=== PATIENT | female | born 1980 | race Caucasian/White ===

== ENCOUNTER 2020-03-14 11:02 | Outpatient (CLI) | payer OTHER, MEDICAID, SELFPAY ==
--- NOTE | 2020-03-14 11:22 | ECG_ITS ---
Measurements Intervals [place] Rate: 71 P: 43 AR: 209 QRS: 45 QRSD: 99 T: 37 QT: 358 QTc: 390 Interpretive Statements SINUS RHYTHM INCOMPLETE RIGHT BUNDLE BRANCH BLOCK LOW QRS VOLTAGE IN PRECORDIAL LEADS MINIMAL Q WAVES- INFERIOR LEADS BASELINE ARTIFACT- II, III, AVF BORDERLINE ECG Electronically Signed On 03-14-2020 11:37:23 CDT by Kevin Alicia D.O.
[2020-03-14 11:38] LABS: Anion Gap 3 mmol/L (8-16); Blood Urea Nitrogen 9 mg/dL (7-17); Calcium 8.9 mg/dL (8.4-10.2); Carbon Dioxide 32 mmol/L (22-30); Chloride 103 mmol/L (98-107); Estimated Glomerular Filt Rate > 60; Glucose 140 mg/dL (65-105); Potassium 4.4 mmol/L (3.4-5.0); Sodium 138 mmol/L (137-145)
== END 2020-03-14 11:03 | disposition home or self-care (01) ==
PROVIDERS: PCP Internal Medicine; Visit Provider Anesthesiology
DX: E11.9 Type 2 diabetes mellitus without complications (principal); Z01.818 Encounter for other preprocedural examination; I45.10 Unspecified right bundle-branch block
CPT/HCPCS: 36415; 80048; 93005

== ENCOUNTER 2020-03-17 01:43 | Outpatient (CLI) | payer OTHER, MEDICAID, SELFPAY ==
[2020-03-17 22:13] LABS: SARS-CoV-2 RNA PCR Negative
== END 2020-03-17 01:44 | disposition home or self-care (01) ==
LOC: ANHCOVIDDT 01:43
PROVIDERS: PCP Internal Medicine; Visit Provider Obstetrics & Gynecology
DX: Z01.812 Encounter for preprocedural laboratory examination (principal); Z20.828 Contact with and (suspected) exposure to other viral communicable diseases
CPT/HCPCS: 87635; C9803; U0003

== ENCOUNTER 2020-03-20 00:38 | Day surgery (SDC) | payer OTHER, MEDICAID, SELFPAY ==
[2020-03-05 12:15] VITALS: BMI 54.6
[2020-03-20] VITALS (7 sets, daily range): BP systolic 128–145; BP diastolic 67–84; PULSE 52–79; RESP 15–18; TEMP 36.5; O2SAT 96–100
--- NOTE | 2020-03-20 07:14 | WPDHPUPDATE1 ---
History and Physical Update Update Date/Time: 03/20/20 07:14 History and Physical has been reviewed, including an updated exam of the patient. There are NO changes in the patient's condition. Risks, benefits, and alternatives have been discussed and questions answered. Patient agrees to proceed with procedure.
--- NOTE | 2020-03-20 08:45 | WPDANESEPPF ---
Anes - Initial Pre Proc Eval Procedure: Operation Date: 03/20/20 10:00 Proposed Procedures p Laparoscopic Bilateral Tubal Sterilization With Cautery - Sriram Ordaz MD s Hysteroscopy With Shelly Ablation - Sriram Ordaz MD Date/Time: 03/20/20 08:45 Surgeon: Sriram Ordaz MD Pre Op Diagnosis: Menorrhagia Patient Data Age: 39 Gender: F Height: 5 ft 9 in Weight: 168 kg Allergies Allergy/AdvReac Type Severity Reaction Status Date / Time No Known Allergies Allergy Mild Verified 01/09/19 21:24 Home Medications Medication Instructions Recorded Confirmed Type acetaminophen [Tylenol] 325 mg PO ONCE PRN 03/05/20 03/05/20 History aspirin 325 mg PO Q4H PRN 03/05/20 03/05/20 History furosemide 20 mg PO DAILY 03/05/20 03/05/20 History metformin 500 mg PO BID 03/05/20 03/05/20 History simvastatin 10 mg PO DAILY 03/05/20 03/05/20 History Patient hx anesthesia problems: none Family hx anesthesia problems: none [facility] Past Medical History Medical History Diabetes Hyperlipidemia Hypertension Social History Social History Smoking status: Never smoker Alcohol intake: current Drinks per week: 2 Substance use: never Living arrangements: with family Anes - Eval Final PreProcedure Day of Procedure 03/20/20 08:45 Patient weight: super morbidly obese Heart: regular rate and rhythm Lungs: clear to auscultation Airway: Mallampati scale class II Neurological: alert and oriented Last oral intake: >/= 8 hours ASA classification: III Emergent: no Anesthetic plan: proceed Anesthesia type and monitoring: general ETT and standard monitoring Informed Consent: The patient's anesthetic plan and its attendant risks and benefits were discussed with the patient/family/POA. Questions were solicited and answers provided to the satisfaction of the patient/family/POA.
[2020-03-20] MEDS: ACETAMINOPHEN 500 MG TABLET 1000 MG PO (08:47)
[2020-03-20] MEDS: SCOPOLAMINE 1.5 MG PATCH TRANSDERM (08:48)
[2020-03-20 08:58] LABS: Glucose Point of Care 111 (65-105)
[2020-03-20] MEDS: LACTATED RINGERS 1,000 ML 30 ML IV CONT ×2 (09:00→11:14)
[2020-03-20] MEDS: KETOROLAC 15 MG/ML VIAL (*BKC) IV PUSH (09:05)
--- NOTE | 2020-03-20 11:16 | PM.PROC ---
Procedure Note - Detailed Date of procedure: 03/20/20 Pre-op diagnosis: Menorrhagia Post-op diagnosis: same Procedure performed: Laparoscopic bilateral tubal ligation, Endometrial Ablation Description of procedure: Patient was taken the operating room. She has prepped draped in the dorsal lithotomy position after induction of general anesthesia. A 5 mm abdominal incision was made in left upper quadrant of the abdomen with scalpel. A 5 mm trocars inserted the intra-abdominal cavity under direct visualization of the scope. Pneumoperitoneum was achieved. A 5 mm periumbilical incision was made using a scalpel on the abdominal scan. A 5 mm trocar was inserted the intra-abdominal cavity under visualization of the scope.A 2nd 5 mm trocar was required in the left lower quadrant of the abdomen. A 5 mm incision was made 5 mm trocar was inserted the intra-abdominal cavity under direct visualization the scope. This was used to move the colon away while the tubes were fulgurated. There was a corpus luteum cyst that was bleeding after it had been manipulated. This was on the right side. It was Thoroughly cauterized as well. The fallopian tube was grasped with the bipolar cautery in the ampullary region. It was completely desiccated in a 1.5 cm area of the fallopian tube. This was performed in identical fashion on the contralateral side. The instruments were withdrawn. The pneumoperitoneum was reduced. The trocars were removed. The skin was closed with subcuticular 4 Monocryl. This incisions were covered with Dermabond. Our attention was then turned to the endometrial ablation portion of the procedure. A speculum was placed in the vagina. The cervix was grasped with a tenaculum. The cervix was dilated to approximately 8 mm with Lemus dilators. The hysteroscope was inserted. And the below findings were noted. Measurements of the cervix were taken using the uterine sound and the hysteroscope. The intrauterine cavity measurements were entered into the hand piece of the device. The device was inserted the intrauterine cavity. The array was expanded. The balloon cuff was inflated. The uterus was airtight. The energy and safety cycles within initiated. They were completed under 3 minutes. The balloon cuff was collapsed, the array was collapsed, and the device was removed the uterine cavity. the hysteroscope was reinserted and the cavity was well desiccated, it was clearly observed. Hysteroscope was withdrawn. The tenaculum was removed. The speculum was removed. The patient tolerated the procedure well. She was taken to recover room in stable condition. Anesthesia: GETA Surgeon: Sriram Ordaz MD Estimated blood loss (mL): 10 Drains: No Packing: No Pathology: none sent Complications: No immediate complications Condition: stable Disposition: PACU Findings: Normal female pelvic anatomy. corpus luteum cyst on the right ovary. hyperemic, large
[2020-03-20 11:19] LABS: Glucose Point of Care 113 (65-105)
[2020-03-20] MEDS: oxyCODONE HCL (*CRX) 5 MG TAB IR PO (12:10)
== END 2020-03-20 12:44 | disposition home or self-care (01) ==
PROVIDERS: PCP Internal Medicine; Visit Provider Obstetrics & Gynecology
PROC: (CPT 58671; principal; 2020-03-20 10:00)
PROC: 0U5B8ZZ Destruction of Endometrium, Via Natural or Artificial Opening Endoscopic (ICD-10-PCS; CPT 58563; 2020-03-20 10:00)
DX: N92.0 Excessive and frequent menstruation with regular cycle (principal); N83.11 Corpus luteum cyst of right ovary; Z30.2 Encounter for sterilization; I10 Essential (primary) hypertension; E11.9 Type 2 diabetes mellitus without complications; E78.5 Hyperlipidemia, unspecified; Z79.84 Long term (current) use of oral hypoglycemic drugs; Z79.82 Long term (current) use of aspirin; E66.01 Morbid (severe) obesity due to excess calories; Z68.43 Body mass index [BMI] 50.0-59.9, adult
CPT/HCPCS: 58563; 58670; 58662; 88305; A9270; J0330; J1100; J1885; J2250; J2405; J2704; J2710; J3010; J7030; J7120

== ENCOUNTER → 2020-11-07 07:01 | Outpatient (CLI) | payer OTHER, MEDICAID, SELFPAY ==
--- NOTE | ~2020-11-07 | MR_ITS ---
EXAMINATION: MR lumbar spine wo con DATE: 11/07/2020 07:43 INDICATION: Lumbago. Radiculopathy. TECHNIQUE: Magnetic resonance imaging (MRI) of the lumbar spine was performed without intravenous con trast. Sequences included sagittal T2-weighted FSE, sagittal T2-weighted FS FSE, sagittal T1-weighted FSE, and axial T2-weighted FSE. 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 Vertebral body heights are normal. Interval progression of now severe disc height loss at L4-L5 with fibrofatty degenerative endplate changes at both sides of the disc space. Marrow signal is other pascual normal throughout. Remaining disc heights and signal are normal. The conus medullaris terminates at T12-L1. There is normal signal in the caudal spinal cord. Paravertebral soft tissues are unremark able. The following disc levels are specifically discussed: T12-L1: Disc is mildly bulging. There is mild bilateral facet joint osteoarthritis. There is no neura l foraminal stenosis. There is minimal central canal stenosis. L1-L2: Disc is mildly bulging. There is mild bilateral facet joint osteoarthritis. There is normal le ft neural foraminal stenosis. There is minimal central canal stenosis. L2-L3: The disc does not extend beyond the endplate margin. There is mild left and moderate right fac et joint osteoarthritis. There is minimal left neural foraminal stenosis. There is no central canal s tenosis. L3-L4: The disc does not extend beyond the endplate margin. There is hypertrophy of the ligamentum fl avum. There is mild bilateral facet joint osteoarthritis. There is no neural foraminal stenosis. Ther e is mild central canal stenosis. L4-L5: Annular fissure with broad-based disc extrusion extending from foraminal zone to foraminal zon e with disc material extending up to 7 mm cephalad to the level of the inferior endplate of L4. There is moderate bilateral facet joint osteoarthritis. There is moderate to severe bilateral neural joellen inal stenosis. There is mild central canal stenosis. L5-S1: Disc is mildly bulging. There is mild right and mild to moderate left facet joint osteoarthrit is. There is mild bilateral neural foraminal stenosis. There is no central canal stenosis. IMPRESSION: 1. Chronic L4 spondylolysis with bilateral pars intra-articularis defects, 9 mm anterolisthesis L4 on L5 and progression of now severe degenerative disease at L4-L5 resulting in moderate to severe bilat eral neural foraminal stenosis. 2. Minimal spondylosis in the remainder of the lumbar spine. Reviewed, dictated and finalized at location A. IMPRESSION: 1. Chronic L4 spondylolysis with bilateral pars intra-articularis defects, 9 mm anterolisthesis L4 on L5 and progression of now severe degenerative disease at L4-L5 resulting in moderate to severe bilateral neural foraminal stenosis. 2. Minimal spondylosis in the remainder of the lumbar spine.
== END ==
PROVIDERS: PCP Physician Assistant; Visit Provider Nurse Practitioner Family
DX: M47.26 Other spondylosis with radiculopathy, lumbar region (principal)
CPT/HCPCS: 72148

== ENCOUNTER → 2021-03-19 15:04 | Outpatient (CLI) | payer OTHER, MEDICAID, SELFPAY ==
--- NOTE | ~2021-03-19 | XR_ITS ---
XR foot RT min 3V DATE: 03/19/2021 15:32 INDICATION: Right lateral ankle and foot pain for 5 weeks, unknown etiology TECHNIQUE: 4 views COMPARISON: None FINDINGS: Prominent posterior calcaneal enthesopathy. There is osteoarthritic change at the tarsal joints and first metatarsophalangeal joint. No recent fracture or dislocation, periosteal reaction or bone destruction. IMPRESSION: Prominent posterior calcaneal enthesopathy Osteoarthritic changes No fracture or dislocation Reviewed, dictated and finalized at location A.
--- NOTE | ~2021-03-19 | XR_ITS ---
XR ankle RT min 3V DATE: 03/19/2021 15:32 INDICATION: Right lateral ankle and foot pain for 5 weeks TECHNIQUE: 4 views COMPARISON: None FINDINGS: There is osteoarthritis at the tibiotalar joint. No recent fracture or dislocation of the ankle or disruption of the ankle mortise is detected. Prominent posterior calcaneal enthesopathy. Degenerative changes at the talonavicular and tarsal joints area. IMPRESSION: Polyarticular osteoarthritis Posterior calcaneal enthesopathy Reviewed, dictated and finalized at location A.
== END ==
PROVIDERS: PCP Physician Assistant; Visit Provider Physician Assistant
DX: M19.071 Primary osteoarthritis, right ankle and foot (principal)
CPT/HCPCS: 73610; 73630

== ENCOUNTER 2021-04-14 15:33 | Emergency (ER) | payer OTHER, MEDICAID, SELFPAY ==
--- NOTE | ~2021-04-14 | US_ITS ---
EXAMINATION: US pelvic complete w TV DATE: 04/14/2021 17:01 INDICATION: Right pelvic pain Comparison:CT dated 08/18/2018 TECHNIQUE: Multiple transabdominal and endovaginal sonographic images of the pelvis performed. FINDINGS: The uterus measures 7.3 x 4.5 x 6.1 cm. The endometrial complex measures 6 mm. The right ovary measures 2.6 x 1.7 x 2.5 cm and the left ovary is not visualized. There is normal Dop pler signal in the right ovary. No free fluid. There is no free fluid in the pelvis. There are no abnormal masses seen on either side. IMPRESSION: 1. Unremarkable pelvic ultrasound. Reviewed, dictated and finalized at location A. HER OPERATOR
--- NOTE | ~2021-04-14 | CT_ITS ---
EXAMINATION: CT abdomen pelvis w con DATE: 04/14/2021 17:56 INDICATION: Right lower quadrant pain TECHNIQUE: Computed tomography (CT) of the abdomen and pelvis was performed with 100 cc Omnipaque 350 intravenous contrast. The dose-length product was 1510.84 mGy-cm. Automated exposure control and ite rative reconstruction technique were employed. COMPARISON: CT dated 08/18/2009 and ultrasound dated 04/14/2021. FINDINGS: Lung bases are unremarkable. Heart size is normal. No significant pleural or pericardial ef fusion. Small hiatal hernia. No significant vascular abnormality. No lymphadenopathy. There are irving cystectomy clips. Fatty infiltration of the liver. The spleen, pancreas, adrenal glands and kidneys a re unremarkable. Normal appendix. Nonobstructive bowel gas pattern. No free air or free fluid. No lym phadenopathy. No abnormal pelvic masses or fluid collections. There is grade 2 spondylolisthesis at L 4-5 secondary to spondylolysis. IMPRESSION: 1. No acute abdominal abnormality. Reviewed, dictated and finalized at location A. IRONER
--- NOTE | 2021-04-14 16:15 | ED.ABDPAIN ---
HPI - Abdominal Pain General Chief Complaint: Abdominal Pain Stated Complaint: lrq pain Time Seen by Provider: 04/14/21 15:47 Source: patient and RN notes reviewed Mode of arrival: ambulatory Limitations: no limitations History of Present Illness HPI narrative: Patient presents with right lower quadrant pain started 3 days ago, was seen at [facility] yesterday with negative work-up including CT scan of the abdomen and pelvis pain got worse today. Patient denies any fever, chills, nausea, vomiting. Patient is fully vaccinated for COVID-19. History of diabetes, hyperlipidemia, cholecystectomy, bilateral tubal ligation and ovarian cyst Related Data Home Medications Medication Instructions Recorded Confirmed acetaminophen [Tylenol] 325 mg PO ONCE PRN 03/05/20 01/02/21 aspirin 325 mg PO Q4H PRN 03/05/20 01/02/21 furosemide 20 mg PO DAILY 03/05/20 01/02/21 metformin 500 mg PO BID 03/05/20 01/02/21 simvastatin 10 mg PO DAILY 03/05/20 01/02/21 Zyrtec 10 mg PO DAILY 03/20/20 01/02/21 fluticasone propionate 50 1 spray INTRANASAL DAILY 04/04/20 01/02/21 mcg/actuation nasal spray,suspension escitalopram oxalate 10 mg tablet 10 mg PO DAILY 01/02/21 01/02/21 Allergies Allergy/AdvReac Type Severity Reaction Status Date / Time No Known Allergies Allergy Mild Verified 01/02/21 08:21 Review of Systems Review of Systems: CONSTITUTIONAL: Denies fever, chills, or sweats. EYES: Denies visual changes, redness, or discharge. ENT: Denies rhinorrhea, congestion, sore throat, or otalgia. CARDIOVASCULAR: Denies chest pain, palpitations, or edema. RESPIRATORY: Denies cough or dyspnea. GASTROINTESTINAL: Denies abdominal pain, nausea, vomiting, or diarrhea. GENITOURINARY: Denies dysuria or hematuria. SKIN: Denies rash or itching. MUSCULOSKELETAL: Denies back pain, joint pain, or myalgia. NEUROLOGIC: Denies headache, numbness, or weakness. PSYCHIATRIC: Denies anxiety or depression. [facility] Past Medical History Medical History Diabetes Hyperlipidemia Hypertension Social History Social History Smoking status: Never smoker Alcohol intake: current Drinks per week: 2 Substance use: never Exam Narrative: General appearance: Well-developed, well-nourished Skin: Normal color Head: Normocephalic, nontraumatic Eyes: Clear conjunctiva ENT: Oropharynx normal, ears normal, nose normal Neck: Supple, nontender Chest and respiratory: Airway patent, no respiratory distress, no accessory muscle use Heart: Regular rate/rhythm Abdomen: Soft, moderate tenderness right lower quadrant, no guarding or rebound, no organomegaly, quiet bowel sounds Vascular: Normal peripheral pulses, normal capillary refill. Musculoskeletal: Normal range of motion, nontender back Neurologic: Alert and oriented ?3, GUIDE VISITOR is normal as tested, no gross motor deficit Course Course Emergency Course: Stable MDM - Abdominal Pain MDM Narrative Medical decision making narrative: Patient presents with right lower quadrant pain, CT scan abdomen pelvis was negative yesterday. Ovarian torsion, cyst is my concern. Pelvic ultrasound ordered. Differential Diagnosis Differential diagnosis: Likely abdominal pain, acute appendicitis, calculus of kidney, constipation and diverticulitis Imaging Data Radiologist's impression: Impressions Pelvic/Transvag US 04/14/21 17:02 IMPRESSION: 1. Unremarkable pelvic ultrasound. Abdomen/Pelvis CT 04/14/21 17:59 IMPRESSION: 1. No acute abdominal abnormality. Critical Care Time Critical Care Time Critical Care Time
[2021-04-14 16:24] LABS: Basophils Percent Auto 0.4 % (0.2-1.2); Eosinophils Absolute Auto 0.2 K/mm3 (0-0.3); Eosinophils Percent Auto 2.4 % (0-4.4); Hematocrit 38.5 % (37.0-47.0); Hemoglobin 12.6 g/dL (12.0-15.0); Immature Granulocyte Absolute 0.03 K/mm3 (0.00-0.031); Immature Granulocyte Percent A 0.3 % (0-0.5); Lymphocytes Absolute Auto 4.26 K/mm3 (0.9-3.2); Lymphocytes Percent Auto 42.1 % (18.3-44.2); Mean Corpuscular HGB Conc 32.7 g/dl (32-36); Mean Corpuscular Hemoglobin 31.7 pg (26-34); Mean Platelet Volume 9.5 fl (7.4-10.4); Monocytes Absolute Auto 0.8 K/mm3 (0.1-0.6); Monocytes Percent Auto 7.4 % (2.6-8.5); Neutrophils Absolute Auto 4.8 K/mm3 (1.3-6.7); Neutrophils Percent Auto 47.4 % (45.5-73.1); Platelet Count Result 304 k/mm3 (150-375); Red Blood Count 3.97 M/mm3 (4.2-5.4); Red Cell Distribution Width 13.7 % (11.5-14.5); White Blood Count 10.1 K/mm3 (4.5-10.0)
[2021-04-14 16:34] LABS: Alanine Aminotransferase 22 U/L (4-35); Albumin Level 3.9 g/dL (3.5-5.1); Alkaline Phosphatase 96 U/L (38-126); Anion Gap 2 mmol/L (8-16); Aspartate Amino Transferase 26 U/L (14-36); Bilirubin,Total 0.8 mg/dL (0.2-1.3); Blood Urea Nitrogen 12 mg/dL (7-17); Calcium 8.9 mg/dL (8.4-10.2); Carbon Dioxide 30 mmol/L (22-30); Chloride 102 mmol/L (98-107); Estimated Glomerular Filt Rate > 60; Glucose 103 mg/dL (65-110); Lipase 113 U/L (23-300); Potassium 4.3 mmol/L (3.4-5.0); Sodium 134 mmol/L (137-145)
[2021-04-14 16:42] VITALS: BP 165/71; PULSE 92; RESP 16; O2SAT 99
[2021-04-14] MEDS: MORPHINE SULFATE (*CRX) 4 MG/ML INJ IV PUSH (17:13)
[2021-04-14] MEDS: ONDANSETRON INJ 4 MG/2 ML VIAL IV PUSH (17:13)
[2021-04-14 17:28] LABS: Add Urine Microscopic? YES; Appearance Urine Cloudy (Clear); Bacteria Urine Trace /hpf; Bilirubin Urine Negative (Negative); Blood Urine Negative (Negative); Color Urine Yellow (Yellow); Glucose Urine UA Negative (Negative); Ketones Urine Negative (Negative); Leukocyte Esterase Ur 3+ LEU/UL (Negative); Mucus Urine Few /lpf; Nitrate Urine Negative (Negative); Protein Urine Negative (Negative); Specific Grav Ur 1.024 (1.001-1.035); Squamous Epithelial Cell Urine Many /hpf (Few); Urobilinogen Urine Negative mg/dL (<2.0); WBC Urine 16-20 /hpf
== END 2021-04-14 18:48 | disposition home or self-care (01) ==
PROVIDERS: Emergency Provider Emergency Medicine; PCP Physician Assistant
DX: N39.0 Urinary tract infection, site not specified (principal); E11.9 Type 2 diabetes mellitus without complications; E78.5 Hyperlipidemia, unspecified; I10 Essential (primary) hypertension; Z79.82 Long term (current) use of aspirin; Z79.84 Long term (current) use of oral hypoglycemic drugs
CPT/HCPCS: 36415; 74177; 76830; 76856; 80053; 81001; 83690; 85025; 87086; 87088; 96374; 96375; 99284; J2270; J2405; Q9967

== ENCOUNTER → 2021-07-18 10:19 | Outpatient (CLI) | payer OTHER, MEDICAID, SELFPAY ==
--- NOTE | ~2021-07-18 | XR_ITS ---
XR thoracic spine 3V DATE: 07/18/2021 11:20 INDICATION: Cervical, thoracic and lumbar pain for years TECHNIQUE: AP, lateral, swimmer views COMPARISON: 04/06/2021 CT abdomen pelvis FINDINGS: There is mild dextroscoliosis and mild degenerative spurring of the thoracic spine. No frac ture or bone destruction or paraspinal soft tissue thickening. The thoracic pedicles are intact. Surgical clips are likely upper quadrant of the abdomen on the right, due to to cholecystectomy. IMPRESSION: Mild dextro scoliosis Mild degenerative spurring Reviewed, dictated and finalized at location A. Y NUTRITION CONSULTANT
--- NOTE | ~2021-07-18 | XR_ITS ---
XR lumbar spine 2-3V DATE: 07/18/2021 11:20 INDICATION: Lumbar pain for years TECHNIQUE: AP, lateral, coned lateral lumbosacral views COMPARISON: June 23, 2006 lumbar spine FINDINGS: There is grade 2 anterolisthesis at L4-5 with evidence of bilateral L4 interarticularis def ects. There is severe degenerative disc disease at L4-5 as well. There is mild degenerative disease at the remainder of the lumbar spine. No other fracture or bone destruction is evident. The lumbar pedicles are intact. The sacroiliac joints are normal. Status post cholecystectomy. IMPRESSION: Bilateral L4 pars interarticularis defects with grade 2 anterolisthesis at L4-5 Severe degenerative disc disease at L4-5 Reviewed, dictated and finalized at location A. TECHNOLOGIST IMPRESSION: Bilateral L4 pars interarticularis defects with grade 2 anterolisth esis at L4-5 Severe degenerative disc disease at L4-5
--- NOTE | ~2021-07-18 | XR_ITS ---
XR cervical spine 4-5V DATE: 07/18/2021 11:20 INDICATION: Cervical, thoracic and lumbar pain for years TECHNIQUE: AP, lateral, swimmer's, open-mouth views COMPARISON: None FINDINGS: There is straightening of the cervical spine. No fracture or dislocation or locked facet or prevertebral soft tissue swelling. The cervical intersp aces are preserved. IMPRESSION: Straightening Reviewed, dictated and finalized at location A. HOP CAPTAIN IMPRESSION: Straightening
== END ==
PROVIDERS: PCP Physician Assistant; Visit Provider Physician Assistant
DX: M54.2 Cervicalgia (principal); M54.9 Dorsalgia, unspecified; G89.29 Other chronic pain; M43.16 Spondylolisthesis, lumbar region; M51.36 Other intervertebral disc degeneration, lumbar region; M53.82 Other specified dorsopathies, cervical region; M41.84 Other forms of scoliosis, thoracic region; M77.8 Other enthesopathies, not elsewhere classified
CPT/HCPCS: 72050; 72072; 72100

== ENCOUNTER 2022-02-03 09:34 | Outpatient (CLI) | payer OTHER, MEDICAID, SELFPAY ==
[2022-02-03 09:55] LABS: Hematocrit 42.3 % (37.0-47.0); Hemoglobin 13.9 g/dL (12.0-15.0); Mean Corpuscular HGB Conc 32.9 g/dl (32-36); Mean Corpuscular Hemoglobin 31.7 pg (26-34); Mean Corpuscular Volume 96.4 fl (80-100); Mean Platelet Volume 9.6 fl (7.4-10.4); Platelet Count Result 327 k/mm3 (150-375); Red Blood Count 4.39 M/mm3 (4.2-5.4); Red Cell Distribution Width 13.6 % (11.5-14.5); White Blood Count 10.8 K/mm3 (4.5-10.0)
[2022-02-03 10:06] LABS: Alanine Aminotransferase 14 U/L (6-35); Alkaline Phosphatase 103 U/L (38-126); Anion Gap 11 mmol/L (8-16); Aspartate Amino Transferase 21 U/L (14-36); Bilirubin,Total 0.5 mg/dL (0.2-1.3); Blood Urea Nitrogen 12 mg/dL (7-17); Calcium 8.5 mg/dL (8.4-10.2); Carbon Dioxide 26 mmol/L (22-30); Chloride 104 mmol/L (98-107); Estimated Glomerular Filt Rate > 60; Glucose 117 mg/dL (65-110); Potassium 4.2 mmol/L (3.4-5.0); Sodium 141 mmol/L (137-145)
[2022-02-03 10:22] LABS: Beta HCG Quantitative < 2.39 mIU/ML
== END 2022-02-03 09:35 | disposition home or self-care (01) ==
PROVIDERS: PCP Physician Assistant; Visit Provider Obstetrics & Gynecology
DX: O09.10 Supervision of pregnancy with history of ectopic pregnancy, unspecified trimester (principal); Z3A.00 Weeks of gestation of pregnancy not specified
CPT/HCPCS: 36415; 80053; 84702; 85027; 86850; 86900; 86901

== ENCOUNTER 2022-02-16 02:36 | Emergency (ER) | payer OTHER, MEDICAID, SELFPAY ==
[2022-02-16] VITALS (14 sets, daily range): BP systolic 123–149; BP diastolic 74–91; PULSE 86; RESP 17; TEMP 36.6; O2SAT 97–100
--- NOTE | ~2022-02-16 | CT_ITS ---
EXAMINATION: CT abdomen pelvis w con DATE: 02/16/2022 06:09 INDICATION: R side abd pain, intermittently radiating into groin, nausea TECHNIQUE: Computed tomography (CT) of the abdomen and pelvis was performed with 100 mL Omnipaque-350 intravenous contrast. Automated exposure control and iterative reconstruction technique were employe d. The dose-length product was 2104.94 mGy-cm. COMPARISON: 04/06/2021. FINDINGS: Lower thorax: Unremarkable Liver: Enlarged. Biliary/Gallbladder: Gallbladder is absent. No bile duct dilation. Pancreas: No mass or duct dilation. Spleen: Normal. Adrenals:No mass. Kidneys: No mass, stone, or hydronephrosis. Bilateral cortical thinning and scarring. GI tract: No small or large bowel dilation. Normal appendix. Mesentery/Peritoneum: No ascites, mass, or free air. Retroperitoneum: No mass. Pelvis: Pelvic organs are within normal limits. 2.5 cm left ovarian cyst. Soft Tissues: Soft tissues and body wall unremarkable. Bones: No acute osseous finding. IMPRESSION: No acute abdominopelvic process detected. Reviewed, dictated and finalized at location K.
--- NOTE | 2022-02-16 04:06 | ED.ABDPAIN ---
HPI - Abdominal Pain General Chief Complaint: Abdominal Pain Stated Complaint: Right flank pain Time Seen by Provider: 02/16/22 03:48 Source: RN notes reviewed History of Present Illness HPI narrative: Patient presents emergency department from home for right side abdominal pain. Patient states the pain began yesterday the pain is located in the right mid and upper abdomen with radiation around to the back patient states the pain is described as aching in nature. States has been associated with nausea she denies having any vomiting or diarrhea. Denies any fevers or chills. States she took pain medication yesterday for the symptoms but did not take anything today patient states she has had her gallbladder removed Related Data Home Medications Medication Instructions Recorded Confirmed acetaminophen 325 mg capsule 325 mg PO ONCE PRN PAIN 03/05/20 01/02/21 (Tylenol) aspirin 325 mg tablet 325 mg PO Q4H PRN Pain 03/05/20 01/02/21 furosemide 20 mg tablet 20 mg PO DAILY 03/05/20 01/02/21 metformin 500 mg tablet 500 mg PO BID 03/05/20 01/02/21 simvastatin 10 mg tablet 10 mg PO DAILY 03/05/20 01/02/21 cetirizine 10 mg capsule (Zyrtec) 10 mg PO DAILY 03/20/20 01/02/21 fluticasone propionate 50 1 spray intranasal DAILY 04/04/20 01/02/21 mcg/actuation nasal spray,suspension escitalopram oxalate 10 mg tablet 10 mg PO DAILY 01/02/21 01/02/21 (Lexapro) Allergies Allergy/AdvReac Type Severity Reaction Status Date / Time No Known Allergies Allergy Mild Verified 02/16/22 02:43 Review of Systems Review of Systems: Gen.: Denies fevers or chills ENT: Denies congestion Respiratory: Denies shortness of breath or cough CV: Denies chest pain or palpitations GI: See HPI denies burning, urgency, frequency or hematuria Musculoskeletal: Denies back pain or muscle pain Neuro: Denies numbness, tingling, weakness or focal weakness Skin: Denies rash Except as documented, all other systems reviewed and negative PMF Past Medical History Medical History Diabetes Hyperlipidemia Hypertension Social History Social History Smoking status: Never smoker Alcohol intake: current Drinks per week: 2 Substance use: never Exam Narrative: APPEARANCE: No acute distress, nontoxic, resting in bed HEENT: Normocephalic, atraumatic, OMM RESPIRATORY: No respiratory distress, clear to auscultation bilaterally with no rhonchi wheezing or rales CARDIOVASCULAR: RRR s murmur ABDOMINAL: Soft nondistended tender palpation of the right upper quadrant no tenderness in the right lower quadrant left lower quadrant left upper quadrant no rebound or guarding MUSCULOSKELETAl: Moves all extremities. No clubbing, cyanosis or edema. NEURO: Awake and alert. Following commands, speech normal, no focal deficits SKIN:: Warm, dry. Normal Color PSYCHIATRIC: Normal affect/mood Course Course Emergency Course: Patient states that they are feeling much better at this time. States abdominal pain juarez improved. Repeat abdominal exam shows the patient's abdomen to be soft with no surgical abdomen present. Discussed with patient results of workup and diagnosis. Discussed need for follow-up with primary care physician, reasons to return to the emergency department in proper use of medication. Patient understands and agrees to current treatment plan Vital Signs Vital signs: Vital Signs Temperature 97.8 F 02/16/22 02:40 Pulse Rate 86 02/16/22 02:40 Respiratory Rate 17 02/16/22 02:40 Blood Pressure 149/87 H 02/16/22 02:40 Pulse Oximetry 100 02/16/22 02:40 Oxygen Delivery Room Air 02/16/22 02:40 Temperature 97.8 F 02/16/22 02:40 Pulse Rate 86 02/16/22 02:40 Respiratory Rate 17 02/16/22 02:40 Blood Pressure 129/91 H 02/16/22 05:31 Pulse Oximetry 99 02/16/22 06:15 Oxygen Delivery Room Air 02/16/22 02:40 MDM -
[2022-02-16] MEDS: SODIUM CHLORIDE 0.9% IV 1,000 ML 999 ML IV CONT (04:28)
[2022-02-16] MEDS: ONDANSETRON INJ 4 MG/2 ML VIAL IV PUSH (04:29)
[2022-02-16] MEDS: KETOROLAC 30 MG/ML VIAL (*BKC) IV PUSH (04:29)
[2022-02-16 04:36] LABS: Appearance Urine Clear (Clear); Basophils Absolute Auto 0.1 K/mm3 (0.0-0.1); Basophils Percent Auto 0.4 % (0.2-1.2); Bilirubin Urine Negative (Negative); Blood Urine Trace-lysed (Negative); Color Urine Yellow (Yellow); Eosinophils Absolute Auto 0.2 K/mm3 (0-0.3); Eosinophils Percent Auto 1.7 % (0-4.4); Glucose Urine UA Negative (Negative); Hemoglobin 12.7 g/dL (12.0-15.0); Immature Granulocyte Absolute 0.03 K/mm3 (0.00-0.031); Immature Granulocyte Percent A 0.3 % (0-0.5); Ketones Urine Negative (Negative); Leukocyte Esterase Ur Negative LEU/UL (Negative); Lymphocytes Absolute Auto 4.47 K/mm3 (0.9-3.2); Lymphocytes Percent Auto 39.7 % (18.3-44.2); Mean Corpuscular HGB Conc 32.6 g/dl (32-36); Mean Corpuscular Hemoglobin 31.4 pg (26-34); Mean Corpuscular Volume 96.3 fl (80-100); Mean Platelet Volume 9.6 fl (7.4-10.4); Monocytes Absolute Auto 0.9 K/mm3 (0.1-0.6); Monocytes Percent Auto 8.2 % (2.6-8.5); Neutrophils Absolute Auto 5.6 K/mm3 (1.3-6.7); Neutrophils Percent Auto 49.7 % (45.5-73.1); Nitrate Urine Negative (Negative); Platelet Count Result 277 k/mm3 (150-375); Protein Urine Negative (Negative); Red Blood Count 4.05 M/mm3 (4.2-5.4); Red Cell Distribution Width 13.5 % (11.5-14.5); Specific Grav Ur 1.025 (1.001-1.035); Urobilinogen Urine 0.2 mg/dL (<2.0); White Blood Count 11.3 K/mm3 (4.5-10.0)
[2022-02-16 04:40] LABS: Mucus Urine Rare /lpf; RBC Urine 0-2 /hpf (0-2); Squamous Epithelial Cell Urine Many /hpf (Few); WBC Urine 0-3 /hpf
[2022-02-16 04:46] LABS: Alanine Aminotransferase 13 U/L (6-35); Albumin Level 3.5 g/dL (3.5-5.1); Alkaline Phosphatase 102 U/L (38-126); Anion Gap 4 mmol/L (8-16); Aspartate Amino Transferase 17 U/L (14-36); Bilirubin,Total 0.3 mg/dL (0.2-1.3); Blood Urea Nitrogen 12 mg/dL (7-17); Calcium 8.2 mg/dL (8.4-10.2); Carbon Dioxide 28 mmol/L (22-30); Chloride 105 mmol/L (98-107); Estimated Glomerular Filt Rate > 60; Glucose 120 mg/dL (65-110); Lipase 175 U/L (23-300); Potassium 3.7 mmol/L (3.4-5.0); Sodium 137 mmol/L (137-145)
--- NOTE | 2022-02-16 07:10 | PC.NURSE ---
Report given to MARKUS Engel.
[2022-02-20 14:42] LABS: Add Urine Microscopic? YES
== END 2022-02-16 07:33 | disposition home or self-care (01) ==
PROVIDERS: Emergency Provider Emergency Medicine; PCP Physician Assistant
DX: R10.9 Unspecified abdominal pain (principal); E11.9 Type 2 diabetes mellitus without complications; E78.5 Hyperlipidemia, unspecified; I10 Essential (primary) hypertension; Z79.82 Long term (current) use of aspirin; Z79.84 Long term (current) use of oral hypoglycemic drugs
CPT/HCPCS: 36415; 74177; 80053; 81001; 81003; 81025; 83690; 85025; 96361; 96374; 96375; 99284; J1885; J2405; J7030; Q9967